=== PATIENT | female | born 2000 | race Hispanic/Latino ===

== ENCOUNTER 2022-10-24 11:56 | Emergency (ER) | payer OTHER ==
[~2022-10-24] VITALS: Ht 167.6 cm; Wt 72.6 kg
[~2022-10-24 11:56] MED LIST: CEPHALEXIN500 M1 PO
--- OUTSIDE RECORDS SUMMARY | 2022-10-24 12:06 | XMS ---
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 Vinny has no Care Guidelines for this patient. Jam[facility] V[facility] (12 MO.) [facility] NOTE: Visits indicate total known visits. ED/[facility] VISIT TRACKING (12 MO.) [facility] COMPLAINT: - L LEG INJURY 10/03/2022 11:[address] [facility] TYPE: Emergency COMPLAINT: - DIZZY, FATIGUE, BODY ACHES DIAGNOSES: - Anemia, unspecified - Urinary tract infection, site not specified - Dizziness and giddiness INPATIENT VISIT TRACKING (12 MO.) No inpatient visits to display in this time frame [email or web address]
== END 2022-10-24 13:28 | disposition home or self-care (01) ==
LOC: ED 11:56
DX: T14.8XXA Other injury of unspecified body region, initial encounter (principal); D64.9 Anemia, unspecified; W10.9XXA Fall (on) (from) unspecified stairs and steps, initial encounter
CPT/HCPCS: 71101; 73502; 73610; 99283-25; A9270